=== PATIENT | female | born 2000 | race Caucasian/White ===

== ENCOUNTER 2018-04-21 14:00 | Emergency (ER) | payer MEDICAID ==
[2018-04-21 14:28] VITALS: BP 122/71
[2018-04-21] MEDS ORDERED: diphenhydrAMINE 50 MG/ML SDV IM ONE (14:35)
[2018-04-21] MEDS ORDERED: Metoclopramide 10 MG/2 ML SDV IM ONE (14:35)
--- NOTE | 2018-04-21 15:00 | EDM.PDOC ---
ED HPI GENERAL MEDICAL PROBLEM - General Chief Complaint: Respiratory Problem Stated Complaint: TROUBLE BREATHING Time Seen by Provider: 04/21/18 14:30 Source of Information: Reports: Patient, Family History Limitations: Reports: No Limitations - History of Present Illness INITIAL COMMENTS - FREE TEXT/NARRATIVE: Destinee is a 18 year old female, 27 weeks who presents to the ED today with c/o sob and chest wall pain. Patient is a , smokes one pack of cigarettes every 3 days, woke up with is morning with her symptoms. Patient was seen and thoroughly evaluated at [facility] ED this morning. Patient had blood work done including a CBC, CMP, BNP, UA, Troponin. Patient had a mild leukocytosis but remaining blood and urine are unremarkable. EKG was done which was negative for any acute ischemic findings. CT scan done to rule out PE and was negative. Patient was discharged with pleuritic chest pain and instructed to take Tylenol. Patient tried Tylenol when she got home but states the pain has continued to progress throughout the day. Patient reports pain with position changes and deep breath. She has not had any recent fever/chills/ productive cough. Patient denies any hemoptysis. Patient has had pleurisy in the past and states this feels similar. Patient denies any complaints , baby is moving. 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 ED EXAM, GENERAL - Physical Exam Exam: See Below Exam Limited By: No Limitations General Appearance: Alert, WD/WN, Mild Distress, Other (appears uncomfortable) Ears: Normal External Exam Throat/Mouth: Normal Inspection, Normal Oropharynx Head: Atraumatic Neck: Normal Inspection, Supple, Non-Tender, Full Range of Motion Respiratory/Chest: Lungs Clear, Normal Breath Sounds, Other (anterior chest wall tender to palpation) Cardiovascular: Normal Peripheral Pulses, No Murmur, Tachycardia GI/Abdominal: Other (Gravid) Back Exam: Normal Inspection Extremities: Normal Inspection Neurological: Alert, Oriented, CN II-XII Intact Psychiatric: Anxious Skin Exam: Warm, Dry, Rash (macular rash to back not new per patient) Lymphatic: No Adenopathy Course - Vital Signs Last Recorded V/S: Last Vital Signs Temp 36.2 C 04/21/18 14:27 Pulse 116 H 04/21/18 14:27 Resp 24 H 04/21/18 14:27 BP 122/71 04/21/18 14:27 Pulse Ox 98 04/21/18 14:27 Destinee is an otherwise healthy 18 year old female who presents to the ED today with c/o chest wall pain and sob. Please refer to HPI and focused exam. Patient arrives here mildly tachypneic and tachycardic, she is not hypoxic, she is normotensive. Patient's pain and exam is very consistent with pleuritic chest wall pain, unfortunately secondary to patient's gravid state she is unable to take any NSAIDS. [facility] ED visit was faxed over, ED visit records , provider notes, EKG, CT scan and lab values were all reviewed. Extensive work up this morning was negative for anything acute. Patient on exam today is tender to anterior chest wall, she is anxious appearing. Her lungs are clear. Patient was given a dose of IM Reglan and Benadryl here to help with her anxiety which hopefully will allow her to take a deep breath. 1530-Minimal improvement with medications, now just tired. We will try a dose of Oxycodone, category/risks discussed with patient who would like to proceed. 1610-Pain is beginning to improve. I am going to send patient home with oxycodone for pain. She can alternate this with Tylenol. Narcotic safety and side effects discussed in detail. Patient was sent home with an incentive spirometer, instructed on it's use by nursing staff, patient instructed to use one an hour while awake until able to take a deep breath without pain. Patient was instructed to follow up in clinic later this week for re- evaluation. Reasons to return to the ED were discussed in detail. Patient is agreeable to plan of care and discharged in stable condition with her mom driving. - Orders/Labs/Meds Meds: Medications Discontinued Medications Generic Name Dose Route Start Last Admin Trade Name Anne PRN Reason Stop Dose Admin Diphenhydramine HCl 50 mg 04/21/18 14:35 04/21/18 14:48 Benadryl IM 04/21/18 14:36 50 mg ONETIME ONE Administration Metoclopramide HCl 10 mg 04/21/18 14:35 04/21/18 14:49 Reglan IM 04/21/18 14:36 10 mg ONETIME ONE Administration Oxycodone HCl 10 mg 04/21/18 15:29 04/21/18 15:36 Oxycodone PO 04/21/18 15:30 10 mg ONETIME ONE Administration Departure - Departure Time of Disposition: 16:30 Disposition: Home, Self-Care 01 Condition: Good Clinical Impression: Anterior chest wall pain - Discharge Information *PRESCRIPTION DRUG MONITORING PROGRAM REVIEWED*: No *COPY OF PRESCRIPTION DRUG MONITORING REPORT IN PATIENT [place]: No Instructions: Steps to Quit Smoking, [id number], Incentive Spirometer, Chest Wall Pain, [id number] Referrals: PCP,None [Primary Care Provider] - Forms: ED Department Discharge Additional Instructions: Destinee, You can take up to 4,000 mg of Tylenol (Acetaminophen) daily. You can take either 650 mg every 4 hours or 1,000 mg every 6 hours. You can take the Oxycodone as needed for severe pain, 5-10 mg every 4-6 hours. This is a narcotic, do not drive if you take it. I would strongly encourage you to quit smoking. A heating pad to upper chest may be helpful. Use your incentive spirometer once every hour while awake until you are able to breath without pain. I would like you seen by your primary care provider later this week for re- evaluation. Return to the ED with any concerns or worsening symptoms. I hope you feel better soon.
[2018-04-21] MEDS ORDERED: oxyCODONE 5 MG Tab PO ONE (15:29)
== END 2018-04-21 16:28 | disposition home or self-care (01) ==
LOC: JP.ED 14:00
DX: O99.89 Other specified diseases and conditions complicating pregnancy, childbirth and the puerperium (principal); R07.89 Other chest pain; O99.332 Smoking (tobacco) complicating pregnancy, second trimester; F17.210 Nicotine dependence, cigarettes, uncomplicated; Z79.899 Other long term (current) drug therapy; Z3A.27 27 weeks gestation of pregnancy
CPT/HCPCS: 96372; 99285; A9270; J1200; J2765